=== PATIENT | female | born 1950 | race Caucasian/White ===

== ENCOUNTER 2021-06-29 07:49 | Outpatient (CLI) | payer MEDICARE, SELFPAY ==
--- NOTE | ~2021-06-29 | US_ITS ---
EXAMINATION: US right upper quadrant DATE: 06/29/2021 08:13 INDICATION: Elevated alkaline phosphatase TECHNIQUE: Multiple grayscale and Doppler ultrasound images of the abdomen were obtained. COMPARISON: None available FINDINGS: The head and body of the pancreas are normal. The pancreatic tail is obscured by bowel gas. The liver demonstrates increased echogenicity, heterogenous echotexture, and decreased through trans mission. No surface nodularity. Normal hepatopetal flow in the main portal vein. The gallbladder is n ormal with no abnormal wall thickening, pericholecystic fluid or stones. The normal common bile duct measures 6 mm. There was no sonographic Verma sign. IMPRESSION: 1. Diffuse hepatic steatosis. Reviewed, dictated and finalized at location B.
== END 2021-06-29 07:50 ==
PROVIDERS: PCP Internal Medicine; Visit Provider Internal Medicine
DX: R74.8 Abnormal levels of other serum enzymes (principal); K76.0 Fatty (change of) liver, not elsewhere classified
CPT/HCPCS: 76705

== ENCOUNTER 2021-11-22 19:07 | Emergency (ER) | payer MEDICARE, SELFPAY ==
[2021-11-22 19:10] VITALS: BP 115/58; PULSE 72; RESP 18; TEMP 36.9; O2SAT 99
--- NOTE | 2021-11-22 20:21 | PC.NURSE ---
Pt sitting in ER entrance w/ wheelchair left empty in w/r. This RN approached and ask if she is still wanting to be seen. Pt states No, I have someone coming to get me. You guys took back two people that came after me. This RN tried to discuss triage process, and if someone was taken back first it is due to acuity. Pt became agitated and states Well, that blonde girl didnt look sick. This is bullshit. She looked like a dope head, or maybe its because she has a family member that works here. Pt continued to verbally complain when walked out to car and got in and drove away.
== END 2021-11-22 21:04 | disposition left against medical advice (07) ==
LOC: ANHED 20:25
PROVIDERS: PCP Internal Medicine
DX: R10.9 Unspecified abdominal pain (principal)
CPT/HCPCS: 99199

== ENCOUNTER 2021-11-23 13:38 | Outpatient (CLI) | payer MEDICARE, SELFPAY ==
--- NOTE | ~2021-11-23 | XR_ITS ---
XR lumbar spine 2-3V DATE: 11/23/2021 14:15 INDICATION: Low back pain radiating up the spine. Unable to get out of bed without assistance today. History of discectomy in 1989 and L4-5 fusion in 1992. No recent injury. TECHNIQUE: AP, lateral, coned lateral lumbosacral views COMPARISON: 05/07/2015 lumbar spine FINDINGS: Again noted is posterior spinal fusion at L4-5. There is increased degenerative disc disease in the upper mid lumbar spine since 05/07/2015, severe at L1-2 and moderately severe at L2-3 and L3-4. There is grade 1 anterolisthesis at L3-4. Diffuse osteopenia. Minimal dextroscoliosis of the lumbar spine. The sacroiliac joints are intact. IMPRESSION: Increased moderately severe to severe degenerative disc disease at L1-2 through L3-4 sinc e 05/07/2015 Posterior spinal fusion is again noted at L4-5 Osteopenia Reviewed, dictated and finalized at location B. 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
--- NOTE | ~2021-11-23 | XR_ITS ---
XR thoracic spine 2V DATE: 11/23/2021 14:15 INDICATION: Generalized lower back pain radiating up the spine, greater on the right. Needed help get ting out of bed today. History of discectomy in 1989, L4-5 fusion in 1992 TECHNIQUE: AP, lateral, swimmer views COMPARISON: None FINDINGS: Status post anterior cervical spine fusion at C5-7. Diffuse osteopenia. There is mild levoscoliosis of the upper thoracic spine and minimal dextroscoliosis of the lower thor acic spine. No fracture or dislocation or bone destruction. The thoracic pedicles are intact. No paraspinal soft tissue thickening. IMPRESSION: Status post anterior cervical spine fusion at C5-7 Osteopenia Mild thoracic scoliosis Reviewed, dictated and finalized at location B. 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
== END 2021-11-23 13:39 ==
PROVIDERS: PCP Internal Medicine; Visit Provider Internal Medicine
DX: M51.35 Other intervertebral disc degeneration, thoracolumbar region (principal); M51.36 Other intervertebral disc degeneration, lumbar region; Z98.1 Arthrodesis status; M85.88 Other specified disorders of bone density and structure, other site; M41.84 Other forms of scoliosis, thoracic region
CPT/HCPCS: 72070; 72100

== ENCOUNTER → 2023-03-22 11:13 | Outpatient (CLI) | payer MEDICARE, MEDICAID, SELFPAY ==
--- NOTE | ~2023-03-22 | XR_ITS ---
Left Shoulder Technique: AP and axillary views were obtained. Clinical History: Pain Findings: No fracture or dislocation is seen. Osseous alignment is anatomic. There is mild degenerati ve change of the acromioclavicular and glenohumeral joint. Soft tissues are unremarkable. Impression: Mild degenerative changes, as above. Reviewed, dictated and finalized at location . Impression: Mild degenerative changes, as above.
== END ==
PROVIDERS: PCP Internal Medicine; Visit Provider Internal Medicine
DX: M25.512 Pain in left shoulder (principal)
CPT/HCPCS: 73030

== ENCOUNTER 2023-09-04 09:29 | Outpatient (CLI) | payer MEDICARE, MEDICAID, SELFPAY | END 2023-09-04 09:30 | disposition home or self-care (01) | LOC: ANHAUDASC 09:30 | PROVIDERS: PCP Internal Medicine; Visit Provider Otolaryngology | DX: H90.3 Sensorineural hearing loss, bilateral (principal) | CPT/HCPCS: 92557; 92567 ==

== ENCOUNTER 2024-07-21 11:59 | Emergency (ER) | payer MEDICARE, SELFPAY ==
--- NOTE | ~2024-07-21 | XR_ITS ---
XR chest 2V Ordering provider: Magdy Cooper MD History: 73 years Female with . swollen ext, SOB . Comparison: July 28, 2014 FINDINGS: MEDIASTINUM: The cardiac silhouette is slightly enlarged. LUNGS: No infiltrates, effusions or pneumothorax. OTHER: No free air under the diaphragm. IMPRESSION: No acute cardiopulmonary pathology. Reviewed, dictated and finalized at location A.
[2024-07-21 12:01] VITALS: BP 152/69; PULSE 87; RESP 18; TEMP 36.4; O2SAT 100
[2024-07-21 14:24] VITALS: BP 141/71; PULSE 65; RESP 15; TEMP 36.6; O2SAT 98
[2024-07-21 14:55] VITALS: PULSE 97
--- NOTE | 2024-07-21 14:58 | ECG_ITS ---
Test Date: 2024-07-21 15:07:46 Measurements Intervals [place] Rate: 73 P: 58 SD: 201 QRS: -53 QRSD: 148 T: 32 QT: 430 QTc: 476 Interpretive Statements SINUS RHYTHM WITH SINUS ARRHYTHMIA BORDERLINE AV CONDUCTION DELAY RIGHT BUNDLE BRANCH BLOCK LEFT ANTERIOR FASCICULAR BLOCK VOLTAGE CRITERIA FOR LVH BASELINE ARTIFACT- AVR, AVL, AVF ABNORMAL ECG No previous ECG available for comparison Electronically Signed On 07-21-2024 15:42:57 CDT by Adonis Man D.O.
[2024-07-21 15:17] LABS: Basophils Percent Auto 0.5 % (0.2-1.2); Eosinophils Absolute Auto 0.1 K/mm3 (0-0.3); Eosinophils Percent Auto 1.9 % (0-4.4); Hematocrit 32.1 % (37.0-47.0); Hemoglobin 10.9 g/dL (12.0-15.0); Immature Granulocyte Absolute 0.02 K/mm3 (0.00-0.031); Immature Granulocyte Percent A 0.4 % (0-0.5); Lymphocytes Absolute Auto 1.01 K/mm3 (0.9-3.2); Lymphocytes Percent Auto 17.8 % (18.3-44.2); Mean Corpuscular Hemoglobin 30.4 pg (26-34); Mean Corpuscular Volume 89.7 fl (80-100); Mean Platelet Volume 8.7 fl (7.4-10.4); Monocytes Absolute Auto 0.5 K/mm3 (0.1-0.6); Monocytes Percent Auto 8.8 % (2.6-8.5); Neutrophils Percent Auto 70.6 % (45.5-73.1); Platelet Count Result 166 k/mm3 (150-375); Red Blood Count 3.58 M/mm3 (4.2-5.4); Red Cell Distribution Width 13.3 % (11.5-14.5); White Blood Count 5.7 K/mm3 (4.5-10.0)
[2024-07-21 15:29] LABS: Alanine Aminotransferase 16 U/L (6-35); Albumin Level 4.2 g/dL (3.5-5.1); Alkaline Phosphatase 100 U/L (38-126); Anion Gap 10 mmol/L (4-12); Aspartate Amino Transferase 29 U/L (14-36); Bilirubin,Total 0.8 mg/dL (0.2-1.3); Blood Urea Nitrogen 19 mg/dL (7-17); Calcium 9.5 mg/dL (8.4-10.2); Carbon Dioxide 24 mmol/L (22-30); Chloride 104 mmol/L (98-107); Estimated CRCL calculation 43 ml/min; Estimated Glomerular Filt Rate 54; Glucose 101 mg/dL (65-110); Potassium 4.4 mmol/L (3.4-5.0); Sodium 138 mmol/L (137-145)
[2024-07-21 15:41] LABS: Add Urine Microscopic? YES; Appearance Urine Clear (Clear); Bacteria Urine 4+ /hpf; Bilirubin Urine Negative (Negative); Blood Urine Negative (Negative); Color Urine Yellow (Yellow); Glucose Urine UA Negative (Negative); Ketones Urine Negative (Negative); Leukocyte Esterase Ur Trace LEU/UL (Negative); Nitrate Urine Positive (Negative); Non Pathogenic Casts 0-2; Protein Urine Negative (Negative); RBC Urine 0-2 /hpf (0-2); Specific Grav Ur 1.009 (1.001-1.035); Squamous Epithelial Cell Urine None Seen /hpf (Few); Urobilinogen Urine 0.2 mg/dL (<2.0); WBC Urine 0-5 /hpf (0-3)
[2024-07-21 15:41] LABS: NT Pro B Type Natriuretic Pept 116 pg/mL (19.9-100); Troponin I < 0.012 ng/mL (0.000-0.034)
--- NOTE | 2024-07-21 16:55 | ED.GENADULT ---
HPI - General Adult General Chief complaint: Shortness of Breath/Dyspnea Stated complaint: sob, leg swelling Time Seen by Provider: 07/21/24 14:15 History of Present Illness HPI narrative: 73-year-old female presenting to the emergency department for evaluation for evaluation for bilateral lower extremity swelling. Patient states the swelling started yesterday. Patient states she did elevate her legs last night and this did not help. Denies any associated chest pain or shortness of breath. Patient denies any orthopnea. Patient states that when she ambulates she does not feel any worsening shortness of breath. Patient has no prior history of congestive heart failure. Related Data Home Medications Medication Instructions Recorded Confirmed amlodipine 10 mg tablet 10 mg PO DAILY 08/28/23 atorvastatin 20 mg tablet 20 mg PO DAILY 08/28/23 cholecalciferol (vitamin D3) 50 50 mcg PO DAILY 08/28/23 mcg (2,000 unit) capsule losartan 100 mg tablet 100 mg PO DAILY 08/28/23 turmeric root extract 500 mg 500 mg PO DAILY 08/28/23 capsule Allergies Allergy/AdvReac Type Severity Reaction Status Date / Time ciprofloxacin Allergy Intermediate Unknown Verified 07/21/24 12:05 gabapentin Allergy Intermediate Unknown Verified 07/21/24 12:05 oxycodone Allergy Intermediate Unknown Verified 07/21/24 12:05 prednisone Allergy Intermediate ITCHING, Verified 07/21/24 12:05 RED, HEADACHE prochlorperazine Allergy Mild Other Verified 07/21/24 12:05 Review of Systems Review of Systems: All systems reviewed & are unremarkable except as noted in HPI and below PMFSH Past Medical History Medical History Headache History of breast cancer Kidney disorder Family History Family History Sibling Heart disease Thyroid disorder Mother Hypertension Father Patient's father is in good health Grandparent Heart disease Other Family history of congestive heart failure Social History Social History Social History: Caffeine- coffee Smoking status: Never smoker Tobacco type: cigarettes Second hand tobacco smoke exposure: No Smoking end date: 10/23/03 Alcohol intake: never Substance use: never Substance use type: does not use Lack of Transportation: YES Lack of Food: Never True Current Housing: I Have Housing Concerned About Future Housing: No Difficulty Paying for Meds: No Currently Unemployed: No Education: Decline to Answer Difficulty w/ Childcare or Family Care: No Living arrangements: alone Gender identity (if verbalized by the patient): Female Agree to blood products: No Exam Narrative: APPEARANCE: Well appearing, no pain, no distress, well-nourished. HEAD: normocephalic, atraumatic. EYES: PERRLA/EOMI, conjunctivae clear. NOSE: Normal no drainage EARS:TMS clear with good light reflex. THROAT: Pharynx clear, no exudate. NECK: Supple. No adenopathy, no masses. RESPIRATORY: Airway patent, respirations nonlabored. Clear to auscultation bilaterally, no rales, rhonchi, wheezing. CARDIOVASCULAR: Regular rate and rhythm without murmurs rubs or gallops. ABDOMINAL: Soft, nontender, nondistended, normal bowel sounds MUSCULOSKELETAL: Bilateral lower extremity edema +1 NEURO: Alert. Cranial nerves II through XII intact. Good gait. Good coordination SKIN: Warm, dry. Normal Color Course Course Emergency Course: Patient was comfortable plan for discharge and close follow-up. Vital Signs Vital signs: Vital Signs Temperature 97.6 F 07/21/24 12:01 Pulse Rate 87 07/21/24 12:01 Respiratory Rate 18 07/21/24 12:01 Blood Pressure 152/69 H 07/21/24 12:01 Pulse Oximetry 100 07/21/24 12:01 Oxygen Delivery Room Air 07/21/24 12:01 Temperature 98 F 07/21/24 14:24 Pulse Rate 68 07/21/24 16:56 Respir
[2024-07-21 16:56] VITALS: PULSE 68; RESP 17; O2SAT 96
[2024-07-21 16:59] VITALS: BP 145/55
== END 2024-07-21 17:30 | disposition home or self-care (01) ==
PROVIDERS: Emergency Provider Emergency Medicine; PCP Internal Medicine
DX: R60.0 Localized edema (principal); Z85.3 Personal history of malignant neoplasm of breast
CPT/HCPCS: 36415; 71046; 80053; 81001; 83880; 84484; 85025; 85610; 85730; 87077; 87086; 87088; 87186; 93005; 99284

== ENCOUNTER 2024-11-27 12:55 | Outpatient (CLI) | payer MEDICARE, SELFPAY ==
--- NOTE | ~2024-11-27 | XR_ITS ---
HISTORY: PAIN AND NUMBNESS COMPARISON: 11/23/2021 TECHNIQUE: 2 view lumbar spine. FINDINGS: Lumbar vertebral bodies are normally aligned. There are 5 non-rib bearing lumbar vertebral bodies. Screw and plate fixation at the levels of L3, L4, L5 and S1. Disc spacer at the level of L3/L4. Ankylosis of L4 and L5. Marked degenerative disease within the remainder of the lumbar spine, with osteophyte formation, disc space narrowing, and endplate changes. Facet hypertrophy is also noted. Diffuse bony demineralization is present. Densely calcified atherosclerotic disease within the abdominal aorta. IMPRESSION: Degenerative disease, without acute or subacute fracture. Reviewed, dictated and finalized at location A. 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
--- NOTE | ~2024-11-27 | XR_ITS ---
HISTORY: PAIN AND NUMBNESS COMPARISON: 07/23/2022 TECHNIQUE: 3 views of the thoracic spine were performed FINDINGS: No acute compression fracture is noted. Diffuse bony demineralization is present. No significant degenerative disease. Fixation hardware within the lower cervical spine. IMPRESSION: Diffuse bony demineralization without acute compression fracture. Reviewed, dictated and finalized at location A. 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
== END 2024-11-27 12:56 | disposition home or self-care (01) ==
LOC: MICIMG 12:56
PROVIDERS: PCP Internal Medicine; Visit Provider Internal Medicine
DX: M54.89 Other dorsalgia (principal); G89.29 Other chronic pain; M51.369 Other intervertebral disc degeneration, lumbar region without mention of lumbar back pain or lower extremity pain
CPT/HCPCS: 72072; 72100